=== PATIENT | female | born 1965 | race Caucasian/White ===

== ENCOUNTER 2016-11-13 17:14 | Emergency (ER) | payer BC ==
[2016-11-13 18:14] VITALS: BP 106/67
--- NOTE | 2016-11-13 18:43 | UC ---
Complaint Female HPI - HPI Summary HPI Summary: This is a 51 yo female who is otherwise healthy who presents with c/o dysuria and frequency for the last 24 hours or so. She has had prior UTIs, last ~1yr ago. Denies associated n/v or abd pain. No back pain. She took Azo just prior to coming in. No assoc vaginal symptoms. - History Of Current Complaint Chief Complaint: [facility] Stated Complaint: URINARY COMPLAINT Hx Last Menstrual Period: irregular since 06/2014 - Allergies/Home Medications Allergies/Adverse Reactions: Allergies Allergy/AdvReac Type Severity Reaction Status Date / Time No Known Allergies Allergy Verified 11/13/16 18:10 PMH/Surg Hx/FS Hx/Imm Hx Previously Healthy: Yes - Surgical History Surgical History: None - Family History Known Family History: Positive: None - Social History Alcohol Use: Occasionally Substance Use Type: None Smoking Status (MU): Never Smoked Tobacco - Immunization History Most Recent Influenza Vaccination: NONE 2015 Most Recent Tetanus Shot: UTD Review of Systems Constitutional: Negative Skin: Negative Eyes: Negative ENT: Negative Respiratory: Negative Cardiovascular: Negative Gastrointestinal: Negative Genitourinary: Dysuria, Frequency Motor: Negative Neurovascular: Negative Musculoskeletal: Negative Neurological: Negative Psychological: Negative All Other Systems Reviewed And Are Negative: Yes Physical Exam Triage Information Reviewed: Yes Appearance: Well-Appearing Vital Signs: Initial Vital Signs Temp 98.1 F 11/13/16 18:11 Pulse 71 11/13/16 18:11 Resp 16 11/13/16 18:11 BP 106/67 11/13/16 18:11 Pulse Ox 97 11/13/16 18:11 Vital Signs Reviewed: Yes Respiratory: Positive: Chest non-tender, Lungs clear. Negative: Crackles, Rhonchi, Wheezing Cardiovascular: Positive: RRR, No Murmur Abdomen Description: Positive: Nontender, Soft. Negative: CVA Tenderness (R), CVA Tenderness (L) Musculoskeletal: Positive: Strength Intact Skin Exam: Normal Skin: Negative: rashes Diagnostics - Laboratory Diagnostic Studies Completed/Ordered: Unable to complete UA Complaint Female Dx - Course Course Of Treatment: This is an otherwise healthy 51 yo female with 24 hours of dysuria and culture. Unable to complete UA due to discoloration from Azo. Urine sent for culture. Empirically treat with Bactrim. - Differential Dx/Diagnosis Differential Diagnosis/HQI/PQRI: Cervicitis, Pelvic Inflammatory Disease, Ureteral Stone, Urinary Tract Infection Provider Diagnoses: 1. UTI Discharge - Discharge Plan Condition: Stable Disposition: HOME Prescriptions: Sulfamethox/Trimethoprim DS* [Bactrim DS 800/160 TAB*] 1 tab PO BID #6 tab Patient Education Materials: Urinary Tract Infection in Women (ED) Referrals: Lizzette Flannery MD [Primary Care Provider] - If Needed Additional Instructions: Instructions: 1. Please take antibiotics as directed 2. Follow up with your primary care provider if symptoms persist
== END 2016-11-13 18:44 | disposition home or self-care (01) ==
LOC: UCCORT 17:14
DX: N39.0 Urinary tract infection, site not specified (principal); B95.8 Unspecified staphylococcus as the cause of diseases classified elsewhere; Z87.440 Personal history of urinary (tract) infections
CPT/HCPCS: 87077; 87086; 99212; G0463